=== PATIENT | male | born 1980 | race Caucasian/White ===

== ENCOUNTER 2017-02-22 01:45 | Emergency (ER) | payer OTHER ==
[2017-02-22] MEDS ORDERED: ACETAMINOPHEN TAB 500 MG TAB PO STA (03:27)
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
[2017-02-22] MEDS ORDERED: DIPH,PERTUS(ACELL)TETVAC-LF 0.5 ML VIAL IM ONE (03:41)
[2017-02-22] MEDS ORDERED: IBUPROFEN 600 MG STARTER PACK 4 TAB BTL PO STA (04:30)
[2017-02-22 04:39] VITALS: BP 131/86; PULSE 101; RESP 18; TEMP 98.1
== END 2017-02-22 04:39 | disposition home or self-care (01) ==
LOC: EC 01:45
DX: S01.01XA Laceration without foreign body of scalp, initial encounter (principal); F17.200 Nicotine dependence, unspecified, uncomplicated; Z23 Encounter for immunization; Z91.048 Other nonmedicinal substance allergy status; Y00.XXXA Assault by blunt object, initial encounter
CPT/HCPCS: 12002; 70450; 72125; 90471; 90715; 99284

== ENCOUNTER → 2017-12-18 | Outpatient (CLI) | payer OTHER ==
--- NOTE | 2017-12-18 10:54 | XR ---
Lumbar spine HISTORY: Back pain 3 views of the lumbar spine Correlation to prior lumbar spine 10/01/2013 There is a dextroscoliosis centered at L1 as on prior, there is a rotatory component. Lumbar vertebra l bodies show preserved height and bone mineralization. Spondylosis is present at multiple levels, es pecially L3, loss of disc height greatest at L5-S1. IMPRESSION: Degenerative disc disease. Scoliosis.
--- NOTE | 2017-12-18 10:56 | XR ---
Cervical spine HISTORY: Neck pain 5 views of the cervical spine correlated to the thoracic spine same date There is multilevel facet arthropathy. Spinal curvature is noted. Foraminal encroachment is present a t C4-5, C5-6 and C6-7 bilaterally due to lateral extension of endplates. Cervical vertebral bodies sh ow preserved height and bone mineralization. Loss of disc height present especially at C5-6, C6-7. Al ignment is anatomic. Prevertebral soft tissues are normal. IMPRESSION: Degenerative disc disease, facet arthropathy, cervical MRI may be of benefit
--- NOTE | 2017-12-18 10:58 | XR ---
Thoracic spine HISTORY: Back pain 3 views of the thoracic spine correlated to lumbar and cervical spine same date Dextroscoliosis is present centered at L1. Curve present in the midthoracic spine. There is multileve l spondylosis resident. Disc spaces mildly reduced. Thoracic vertebral bodies show preserved height a nd bone mineralization. IMPRESSION: Degenerative disc disease. Scoliosis.
== END ==
LOC: RADXRMAIN 08:54
PROVIDERS: ATTEND Internal Medicine
DX: M50.322 Other cervical disc degeneration at C5-C6 level (principal); M51.35 Other intervertebral disc degeneration, thoracolumbar region; M46.92 Unspecified inflammatory spondylopathy, cervical region; M41.85 Other forms of scoliosis, thoracolumbar region
CPT/HCPCS: 72050; 72070; 72100